=== PATIENT | female | born 1955 | race Caucasian/White ===

== ENCOUNTER 2019-09-26 21:33 | Inpatient (IN) | payer MEDICARE, OTHER ==
[~2019-09-26] VITALS: Ht 160 cm; Wt 86.7 kg
--- NOTE | 2019-09-26 22:19 | PHYS DOC ---
Past Medical History Past Medical History: No Pertinent History Additional Past Surgical Histo: LT PLATEAU FX-SCREWS/PLATES Smoking Status: Current Every Day Smoker Alcohol Use: Occasionally Additional Information: PT DRINKS 2 GLASSES OF WINE DAILY. Adult General Chief Complaint Chief Complaint: KNEE INJURY [facility] HPI Patient is a 63 year old female presents with the chief complaint of left knee pain. Prior to arrival patient was stretching her left knee up on a chair. When taking left knee of the chair patient feel to the ground injuring her left knee. On exam left knee is swollen. Patient has decreased ROM of left knee. Patient state pain from left knee radiates up to left thigh. Review of Systems Review of Systems Constitutional: Denies fever or chills [] Eyes: Denies change in visual acuity, redness, or eye pain [] HENT: Denies nasal congestion or sore throat [] Respiratory: Denies cough or shortness of breath [] Cardiovascular: No additional information not addressed in HPI [] GI: Denies abdominal pain, nausea, vomiting, bloody stools or diarrhea [] : Denies dysuria or hematuria [] Musculoskeletal: positive left knee pain Integument: Denies rash or skin lesions [] Neurologic: Denies headache, focal weakness or sensory changes [] Endocrine: Denies polyuria or polydipsia [] All other systems were reviewed and found to be within normal limits, except as documented in this note. Current Medications Current Medications Current Medications Medications (Trade) Dose Ordered Sig/Marlin Start Time Stop Time Status Last Admin Dose Admin Morphine Sulfate (Morphine Sulfate) 4 mg PRN Q2HR PRN 09/26/19 22:30 09/27/19 22:29 Ondansetron HCl (Zofran) 4 mg PRN Q8HRS PRN 09/26/19 22:30 09/27/19 22:29 Allergies Allergies Allergies Coded Allergies Type Severity Reaction Last Updated Verified No Known Drug Allergies 09/26/19 No Physical Exam Physical Exam Constitutional: Well developed, well nourished, no acute distress, non-toxic appearance. [] HENT: Normocephalic, atraumatic, bilateral external ears normal, oropharynx moist, no oral exudates, nose normal. [] Eyes: PERRLA, EOMI, conjunctiva normal, no discharge. [] Neck: Normal range of motion, no tenderness, supple, no stridor. [] Cardiovascular:Heart rate regular rhythm, no murmur [] Lungs & Thorax: Bilateral breath sounds clear to auscultation [] Abdomen: Bowel sounds normal, soft, no tenderness, no masses, no pulsatile masses. [] Skin: Warm, dry, no erythema, no rash. [] Back: No tenderness, no CVA tenderness. [] Extremities: decreased ROM Left knee pain, Left knee swelling, left pedal pulses intact, Left lower extremity NVI Neurologic: Alert and oriented X 3, normal motor function, normal sensory function, no focal deficits noted. [] Psychologic: Affect normal, judgement normal, mood normal. [] Current Patient Data Vital Signs Vital Signs Date Time Temp Pulse Resp B/P (MAP) Pulse Ox O2 Delivery O2 Flow Rate FiO2 09/26/19 22:32 93 09/26/19 21:33 98.0 92 18 176/81 (112) Room Air 98.0 Lab Values Laboratory Tests Test 09/26/19 21:45 White Blood Count 11.9 x10^3/uL (4.0-11.0) H Red Blood Count 4.38 x10^6/uL (3.50-5.40) Hemoglobin 13.1 g/dL (12.0-15.5) Hematocrit 39.5 % (36.0-47.0) Mean Corpuscular Volume 90 fL (79-100) Mean Corpuscular Hemoglobin 30 pg (25-35) Mean Corpuscular Hemoglobin Concent 33 g/dL (31-37) Red Cell Distribution Width 15.5 % (11.5-14.5) H Platelet Count 276 x10^3/uL (140-400) Neutrophils (%) (Auto) 57 % (31-73) Lymphocytes (%) (Auto) 30 % (24-48) Monocytes (%) (Auto) 7 % (0-9) Eosinophils (%) (Auto) 7 % (0-3) H Basophils (%) (Auto) 1 % (0-3) Neutrophils # (Auto) 6.7 x10^3/uL (1.8-7.7) Lymphocytes # (Auto) 3.5 x10^3/uL (1.0-4.8) Monocytes # (Auto) 0.8 x10^3/uL (0.0-1.1) Eosinophils # (Auto) 0.8 x10^3/uL (0.0-0.7) H Basophils # (Auto) 0.1 x10^3/uL (0.0-0.2) Sodium Level 139 mmol/L (136-145) Potassium Level 3.7 mmol/L (3.5-5.1) Chloride Level 103 mmol/L (98-107) Carbon Dioxide Level 23 mmol/L (21-32) Anion Gap 13 (6-14) Blood Urea Nitrogen 17 mg/dL (7-20) Creatinine 0.7 mg/dL (0.6-1.0) Estimated GFR (Cockcroft-Gault) 84.0 BUN/Creatinine Ratio 24 (6-20) H Glucose Level 122 mg/dL (70-99) H Calcium Level 8.7 mg/dL (8.5-10.1) Total Bilirubin 0.2 mg/dL (0.2-1.0) Aspartate Amino Transferase (AST) 18 U/L (15-37) Alanine Aminotransferase (ALT) 21 U/L (14-59) Alkaline Phosphatase 89 U/L (46-116) Troponin I Quantitative < 0.017 ng/mL (0.000-0.055) Total Protein 6.9 g/dL (6.4-8.2) Albumin 3.8 g/dL (3.4-5.0) Albumin/Globulin Ratio 1.2 (1.0-1.7) Laboratory Tests 09/26/19 21:45 Laboratory Tests 09/26/19 21:45 EKG EKG [] Radiology/Procedures Radiology/Procedures [] Course & Med Decision Making Course & Med Decision Making Pertinent Labs and Imaging studies reviewed. (See chart for details) []Xray Knee- Distal fracture. Patient's pain was treated with morphine. Posttreatment patient's pain improved. Patient did have associated nausea which was treated with Zofran. Patient was admitted to the hospitalist with consult placed to orthopedics. Discussed patient with Dr. Jones-- patient will be NPO after midnight. Dragon Disclaimer Dragon Disclaimer This electronic medical record was generated, in whole or in part, using a voice recognition dictation system. Departure Departure Impression: Primary Impression: Knee pain Additional Impression: Fracture, femur, distal Admitting Physician: PONCHO Condition: STABLE Problem Qualifiers KYLE GILBERT I DO Sep 26, 2019:19
[2019-09-26] MEDS ORDERED: ONDANSETRON PF 4 MG/2 ML VIAL. IVP ONE (22:30)
[2019-09-26] MEDS ORDERED: ONDANSETRON PF 4 MG/2 ML VIAL. IV PRN (22:30)
[2019-09-26] MEDS ORDERED: MORPHINE SULFATE 4 MG/ML VIAL. IV PRN (22:30)
[2019-09-26] MEDS ORDERED: MORPHINE SULFATE 4 MG/ML VIAL. IV ONE (22:30)
[2019-09-26 22:32] LABS: BASO # 0.1 x10^3/uL (0.0-0.2); BASO % 1 % (0-3); EOS # 0.8 x10^3/uL (0.0-0.7); EOS % 7 % (0-3); HEMATOCRIT 39.5 % (36.0-47.0); HEMOGLOBIN 13.1 g/dL (12.0-15.5); LYMPH # 3.5 x10^3/uL (1.0-4.8); LYMPH % 30 % (24-48); MEAN CORPUSCULAR HEMOGLOBIN 30 pg (25-35); MEAN CORPUSCULAR HGB CONC 33 g/dL (31-37); MEAN CORPUSCULAR VOLUME 90 fL (79-100); MONO # 0.8 x10^3/uL (0.0-1.1); MONO % 7 % (0-9); NEUT # 6.7 x10^3/uL (1.8-7.7); NEUT % 57 % (31-73); PLATELET COUNT 276 x10^3/uL (140-400); RED BLOOD COUNT 4.38 x10^6/uL (3.50-5.40); RED CELL DISTRIBUTION WIDTH 15.5 % (11.5-14.5); WHITE BLOOD COUNT 11.9 x10^3/uL (4.0-11.0)
[2019-09-26 22:41] LABS: CALCIUM 8.7 mg/dL (8.5-10.1); CREATININE 0.7 mg/dL (0.6-1.0); POTASSIUM 3.7 mmol/L (3.5-5.1)
[2019-09-26 22:47] LABS: ALBUMIN 3.8 g/dL (3.4-5.0); ALBUMIN/GLOBULIN RATIO 1.2 (1.0-1.7); TOTAL BILIRUBIN 0.2 mg/dL (0.2-1.0); TOTAL PROTEIN 6.9 g/dL (6.4-8.2)
--- NOTE | 2019-09-26 23:09 | RAD ---
AP chest. HISTORY: Preop chest, femur fracture AP view was taken of the chest. Lungs are free of infiltrates. Heart is normal in size. There is no pleural effusion. The aorta is tortuous. IMPRESSION: 1. No acute infiltrates. Electronically signed by: Ha Gonzales MD (09/26/2019 11:06 PM) [id number]
--- NOTE | 2019-09-26 23:12 | RAD ---
Right knee AP and lateral views. HISTORY: Pain after injury 2 views were taken of the right knee. There is a comminuted angulated displaced fracture of the distal third of the right femur. There is possible intercondylar extension of the fracture line. There is arthritis at the knee with joint space narrowing and hypertrophic spurring. There is chondrocalcinosis. IMPRESSION: 1. Comminuted displaced angulated fracture distal right femur. Electronically signed by: Ha Gonzales MD (09/26/2019 11:09 PM) [id number]
[2019-09-27] VITALS (14 sets, daily range): BP systolic 111–156; BP diastolic 67–83
--- NOTE | 2019-09-27 05:20 | EKG ---
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
--- NOTE | 2019-09-27 08:30 | NUR ---
SW following. Discussed with RN, pt from home with , having surgery today. SW will continue to follow.
--- NOTE | 2019-09-27 10:11 | PDOC1 ---
History and Physical Date of Admission Date of Admission DATE: 09/27/19 TIME: 09:59 History of Present Illness History of Present Illness Leighann is a 63 year old female presents with the chief complaint of left knee pain. Prior to arrival patient was stretching her left knee up on a chair. When taking left knee of the chair patient feel to the ground injuring her left knee. Past Medical History Cardiovascular: No pertinent hx Pulmonary: No pertinent hx Heme/Onc: No pertinent hx Hepatobiliary: No pertinent hx Psych: No pertinent hx Past Surgical History Past Surgical History: Total knee replacement (tibia fracture) Family History Family History: No Significant Social History Smoke: <1 pack per day ALCOHOL: none Drugs: None Current Problem List Problem List Problems Medical Problems: (1) Fracture, femur, distal Status: Acute (2) Knee pain Status: Acute Current Medications Current Medications Current Medications Morphine Sulfate (Morphine Sulfate) 4 mg 1X ONCE IV Last administered on 09/26/19at 22:32; Start 09/26/19 at 22:30; Stop 09/26/19 at 22:31; Status DC Ondansetron HCl (Zofran) 4 mg 1X ONCE IVP Last administered on 09/26/19at 22:31; Start 09/26/19 at 22:30; Stop 09/26/19 at 22:31; Status DC Ondansetron HCl (Zofran) 4 mg PRN Q8HRS PRN IV NAUSEA/VOMITING; Start 09/26/19 at 22:30; Stop 09/27/19 at 22:29 Morphine Sulfate (Morphine Sulfate) 4 mg PRN Q2HR PRN IV PAIN Last administered on 09/27/19at 02:57; Start 09/26/19 at 22:30; Stop 09/27/19 at 22:29 Allergies Allergies: Coded Allergies: No Known Drug Allergies (Unverified , 09/26/19) ROS General: No: Chills, Night Sweats, Fatigue, Malaise, Appetite, Other PSYCHOLOGICAL ROS: No: Anxiety, Behavioral Disorder, Concentration difficultie, Decreased libido, Depression, Disorientation, Hallucinations, Hostility, Irritablity, Memory difficulties, Mood Swings, Obsessive thoughts, Physical abuse, Sexual abuse, Sleep disturbances, Suicidal ideation, Other Eyes: No Blurry vision, No Decreased vision, No Double vision, No Dry eyes, No Excessive tearing, No Eye Pain, No Itchy Eyes, No Loss of vision, No Photophobia, No Scotomata, No Uses contacts, No Uses glasses, No Other HEENT: No: Heacaches, Visual Changes, Hearing change, Nasal congestion, Nasal discharge, Oral lesions, Sinus pain, Sore Throat, Epistaxis, Sneezing, Snoring, Tinnitus, Vertigo, Vocal changes, Other Respiratory: No: Cough, Hemoptysis, Orthopnea, Pleuritic Pain, Shortness of breath, SOB with excertion, Sputum Changes, Stridor, Tachypnea, Wheezing, Other Cardiovascular: No Chest Pain, No Palpitations, No Orthopnea, No Paroxysmal Noc. Dyspnea, No Edema, No Lt Headedness, No Other Gastrointestinal: No Nausea, No Vomiting, No Abdominal Pain, No Diarrhea, No Constipation, No Melena, No Hematochezia, No Other Genitourinary: No Dysuria, No Frequency, No Incontinence, No Hematuria, No Retention, No Discharge, No Urgency, No Pain, No Flank Pain, No Other, No , No , No , No , No , No , No Musculoskeletal: Yes Gait Disturbance, Yes Joint Pain, Yes Joint Stiffness Neurological: Yes Gait Disturbance; No Behavorial Changes, No Bowel/Bladder ControlChng, No Confusion, No Dizziness, No Headaches, No Impaired Coord/balance, No Memory Loss, No Numbness/Tingling, No Seizures, No Speech Problems, No Tremors, No Visual Changes, No Weakness, No Other Skin: No Dry Skin, No Eczema, No Hair Changes, No Lumps, No Mole Changes, No Mottling, No Nail Changes, No Pruritus, No Rash, No Skin Lesion Changes, No Other, No Acne Physical Exam General: Alert, Cooperative, No acute distress HEENT: Atraumatic, PERRLA, EOMI, Mucous membr. moist/pink Lungs: Clear to auscultation, Normal air movement Heart: S1S2, no murmurs Extremities: No clubbing, No edema, Normal pulses Skin: No rashes, No significant lesion Neuro: Normal gait, Normal speech, Sensation intact, Cranial nerves 3-12 NL Psych/Mental Status: Mood NL Vitals Vitals Vital Signs Date Time Temp Pulse Resp B/P (MAP) Pulse Ox O2 Delivery O2 Flow Rate FiO2 09/27/19 07:37 Nasal Cannula 2.0 09/27/19 07:00 98.4 89 17 129/75 (93) 94 98.4 Labs Labs Laboratory Tests Test 09/26/19 21:45 White Blood Count 11.9 x10^3/uL (4.0-11.0) Red Blood Count 4.38 x10^6/uL (3.50-5.40) Hemoglobin 13.1 g/dL (12.0-15.5) Hematocrit 39.5 % (36.0-47.0) Mean Corpuscular Volume 90 fL (79-100) Mean Corpuscular Hemoglobin 30 pg (25-35) Mean Corpuscular Hemoglobin Concent 33 g/dL (31-37) Red Cell Distribution Width 15.5 % (11.5-14.5) Platelet Count 276 x10^3/uL (140-400) Neutrophils (%) (Auto) 57 % (31-73) Lymphocytes (%) (Auto) 30 % (24-48) Monocytes (%) (Auto) 7 % (0-9) Eosinophils (%) (Auto) 7 % (0-3) Basophils (%) (Auto) 1 % (0-3) Neutrophils # (Auto) 6.7 x10^3/uL (1.8-7.7) Lymphocytes # (Auto) 3.5 x10^3/uL (1.0-4.8) Monocytes # (Auto) 0.8 x10^3/uL (0.0-1.1) Eosinophils # (Auto) 0.8 x10^3/uL (0.0-0.7) Basophils # (Auto) 0.1 x10^3/uL (0.0-0.2) Sodium Level 139 mmol/L (136-145) Potassium Level 3.7 mmol/L (3.5-5.1) Chloride Level 103 mmol/L (98-107) Carbon Dioxide Level 23 mmol/L (21-32) Anion Gap 13 (6-14) Blood Urea Nitrogen 17 mg/dL (7-20) Creatinine 0.7 mg/dL (0.6-1.0) Estimated GFR (Cockcroft-Gault) 84.0 BUN/Creatinine Ratio 24 (6-20) Glucose Level 122 mg/dL (70-99) Calcium Level 8.7 mg/dL (8.5-10.1) Total Bilirubin 0.2 mg/dL (0.2-1.0) Aspartate Amino Transf (AST/SGOT) 18 U/L (15-37) Alanine Aminotransferase (ALT/SGPT) 21 U/L (14-59) Alkaline Phosphatase 89 U/L (46-116) Troponin I Quantitative < 0.017 ng/mL (0.000-0.055) Total Protein 6.9 g/dL (6.4-8.2) Albumin 3.8 g/dL (3.4-5.0) Albumin/Globulin Ratio 1.2 (1.0-1.7) Laboratory Tests Test 09/26/19 21:45 White Blood Count 11.9 x10^3/uL (4.0-11.0) Red Blood Count 4.38 x10^6/uL (3.50-5.40) Hemoglobin 13.1 g/dL (12.0-15.5) Hematocrit 39.5 % (36.0-47.0) Mean Corpuscular Volume 90 fL (79-100) Mean Corpuscular Hemoglobin 30 pg (25-35) Mean Corpuscular Hemoglobin Concent 33 g/dL (31-37) Red Cell Distribution Width 15.5 % (11.5-14.5) Platelet Count 276 x10^3/uL (140-400) Neutrophils (%) (Auto) 57 % (31-73) Lymphocytes (%) (Auto) 30 % (24-48) Monocytes (%) (Auto) 7 % (0-9) Eosinophils (%) (Auto) 7 % (0-3) Basophils (%) (Auto) 1 % (0-3) Neutrophils # (Auto) 6.7 x10^3/uL (1.8-7.7) Lymphocytes # (Auto) 3.5 x10^3/uL (1.0-4.8) Monocytes # (Auto) 0.8 x10^3/uL (0.0-1.1) Eosinophils # (Auto) 0.8 x10^3/uL (0.0-0.7) Basophils # (Auto) 0.1 x10^3/uL (0.0-0.2) Sodium Level 139 mmol/L (136-145) Potassium Level 3.7 mmol/L (3.5-5.1) Chloride Level 103 mmol/L (98-107) Carbon Dioxide Level 23 mmol/L (21-32) Anion Gap 13 (6-14) Blood Urea Nitrogen 17 mg/dL (7-20) Creatinine 0.7 mg/dL (0.6-1.0) Estimated GFR (Cockcroft-Gault) 84.0 BUN/Creatinine Ratio 24 (6-20) Glucose Level 122 mg/dL (70-99) Calcium Level 8.7 mg/dL (8.5-10.1) Total Bilirubin 0.2 mg/dL (0.2-1.0) Aspartate Amino Transf (AST/SGOT) 18 U/L (15-37) Alanine Aminotransferase (ALT/SGPT) 21 U/L (14-59) Alkaline Phosphatase 89 U/L (46-116) Troponin I Quantitative < 0.017 ng/mL (0.000-0.055) Total Protein 6.9 g/dL (6.4-8.2) Albumin 3.8 g/dL (3.4-5.0) Albumin/Globulin Ratio 1.2 (1.0-1.7) VTE Prophylaxis Ordered VTE Prophylaxis Devices: No VTE Pharmacological Prophylaxi: Yes Assessment/Plan Assessment/Plan fall while exercising, fell off a chair tobacco use disorder, 10/day BMI 32 CINDY BRICENO MD Sep 27, 2019 10:11
[2019-09-27] MEDS ORDERED: NICOTINE POLACRILEX 2MG GUM PACKAGE of 12. BC PRN (10:15)
[2019-09-27] MEDS ORDERED: DEXAMETHASONE SOD PHOS 4 MG/ML VIAL ONE (14:10)
[2019-09-27] MEDS ORDERED: ONDANSETRON PF 4 MG/2 ML VIAL. ONE (14:10)
[2019-09-27] MEDS ORDERED: PROPOFOL 20 ML IV ONE (14:10)
[2019-09-27] MEDS ORDERED: LIDOCAINE 2% PF 5 ML VIAL. ONE (14:10)
[2019-09-27] MEDS ORDERED: IV RINGERS,LACTATED 1000ML 1,000 ML IV SCH ×2 (16:32→16:45)
[2019-09-27] MEDS ORDERED: MORPHINE SULFATE 2 MG/ML VIAL. IV PRN (16:45)
[2019-09-27] MEDS ORDERED: ONDANSETRON PF 4 MG/2 ML VIAL. IV PRN (16:45)
[2019-09-27] MEDS ORDERED: PROCHLORPERAZINE 10 MG/2 ML VIAL. IV PRN (16:45)
[2019-09-27] MEDS ORDERED: fentaNYL PF VIAL 100 MCG/2 ML VIAL IV PRN (16:45)
[2019-09-27] MEDS ORDERED: HYDROmorphone 2 MG/ML VIAL IV PRN (16:45)
[2019-09-27] MEDS ORDERED: fentaNYL PF VIAL 100 MCG/2 ML VIAL ONE (17:07)
[2019-09-27] MEDS ORDERED: SEVOFLURANE 61 TO 120 MINUTES. IH ONE (17:50)
[2019-09-27] MEDS ORDERED: ePHEDrine PF IN SALINE 50 MG/10 ML SYRINGE. IV ONE (17:51)
[2019-09-27] MEDS: fentaNYL PF VIAL 100 MCG/2 ML VIAL IV PRN ×2 (18:58→19:10)
--- NOTE | 2019-09-27 19:05 | PDOC4 ---
Operative Note Operative Note Date of surgery: 09/27/2019 Preoperative diagnosis: Displaced right distal femur fracture Postoperative diagnosis: Same with comminution but no intra-articular extension Operative procedure: Operative reduction internal fixation right distal femur fracture with retrograde intramedullary nail Surgeon: Karen Assist: Otis aguilar Anesthesia: Gen. Estimated blood loss: 100 mL Complications: None Operative indications: Please see my dictated orthopedic consultation of today for detail operative indications Operative text: Patient was identified procedure verified patient placed in the supine position on the operating table. After adequate amounts of general anesthesia were administered the right lower extremity was prepped and draped in standard sterile fashion. After timeout was performed patient procedure identified and verified, the femur fracture was provisionally reduced with traction under fluoroscopic guidance and appeared to be amenable to placement of an intramedullary nail. An incision was made along the medial aspect of the patellar tendon and with the knee in slight flexion patella was displaced laterally placing a guidewire at the intercondylar notch on the AP view and Blumensaat's line laterally. Treated drill bit was advanced and a long guidewire was placed intramedullary reaming carried out up to a 12 1/2 with an 11-1/2 by 32 cm retrograde femoral nail which was first fixated with a lateral to medially placed screw and oblique screws with good fixation of the comminuted bone and screw placement checked under multiple fluoroscopic guidance. A single anterior posterior screw was placed in the static hole proximally and verified to be in good position with adequate reduction and hardware placement again verified throughout thorough irrigation carried out normal saline solution fascia was closed with #1 Vicryl suture subcutaneous closure with buried Vicryl suture skin closure with nedra sterile soft dressings were applied patient was returned recovery room in stable condition having tolerated procedure well. Otis aguilar assisted in the prepping draping reduction retraction and closure ERNIE LANGE MD Sep 27, 2019 19:05
--- NOTE | 2019-09-27 19:45 | CONS ---
DATE OF CONSULTATION: 09/27/2019 ORTHOPEDIC CONSULTATION REQUESTING PHYSICIAN: Dr. Espino. REASON FOR CONSULTATION: Right knee injury. HISTORY OF PRESENT ILLNESS: The patient is a 63-year-old female who was stretching her left knee up on a chair and lost her balance while taking the left knee off the chair and fell to the ground, injuring her right knee. She has a previous injury to her left knee and some stiffness as a result of a tibial plateau fracture. The right knee was previously uninjured and states that she has severe pain, inability to bear weight with the right knee and deformity. She was admitted through the [facility] last night and pain radiating up to her left thigh area. PAST MEDICAL HISTORY: She denies any significant past medical history. PAST SURGICAL HISTORY: Significant for fixation of a tibial plateau fracture on the left with plate and screw fixation. SOCIAL HISTORY: She does smoke. Denies drug use and drinks a couple glasses of wine daily. FAMILY HISTORY: Denies any significant family history. ALLERGIES: No known drug allergies. MEDICATIONS: List is reviewed. REVIEW OF SYSTEMS: Denies any loss of consciousness, head injury, neck or back pain. No upper extremity discomfort at all. She has obvious deformity and pain with any range of motion of the right side just above the knee. No focal weakness, numbness, or tingling. No chest pain, shortness of breath, recent febrile illness, respiratory or urinary tract symptoms. PHYSICAL EXAMINATION: GENERAL: Pleasant, cooperative 63-year-old female, resting comfortably in bed. EXTREMITIES: On examination of the upper extremities, she has full shoulder, elbow and wrist motion bilaterally. No tenderness on palpation, instability. No neck or back pain, no tenderness on palpation. She has obvious deformity and swelling of the right distal femur area. No calf tenderness. She does have a well-healed incision over the contralateral tibia from previous fixation surgery of a tibial plateau fracture. Normal alignment, stability of bilateral hips and ankles with intact motor function, distal pulses, sensation in both lower extremities throughout. IMAGING: X-rays reveal a displaced distal femoral shaft fracture with extension into the metaphysis and she has some degenerative change noted in the right knee tri-compartmentally. IMPRESSION: Displaced distal femur fracture. TREATMENT PLAN: I went over with her the significance of the injury, the poor alignment and the need basically for surgical stabilization, possibility of an intramedullary leticia fixation versus a plate and screw fixation and the necessary protection of limited weightbearing. Regardless, she is certainly familiar with this from previous recovery from a tibial plateau injury. She is aware of the possibility of infection, nonhealing, nerve or blood vessel damage, possibility of hardware removal being necessary if she goes on to need a knee replacement and possibility of medical or other anesthetic complications. All her questions were answered and surgery will be done today pending OR availability. ERNIE LANGE MD DR: LINDA/karlene JOB#: [id number] / [id number]
--- NOTE | 2019-09-27 20:03 | NUR ---
Received report from HUSSEIN Sherwood. Pt. arrived on floor at 1924 from PACU in bed.
--- NOTE | 2019-09-27 22:08 | PDOC ---
ORTHO PROGRESS NOTES Subjective Pt resting comfortably reports no pain, complications day after RIGHT femur ORIF. Post-op Day: 1 Procedure Operative reduction internal fixation right distal femur fracture with retrograde intramedullary nail Vitals Vital Signs Date Time Temp Pulse Resp B/P (MAP) Pulse Ox O2 Delivery O2 Flow Rate FiO2 09/27/19 19:18 Nasal Cannula 4 09/27/19 19:18 98.5 75 16 132/73 96 98.5 Labs Laboratory Tests Test 09/26/19 21:45 White Blood Count 11.9 x10^3/uL (4.0-11.0) Red Blood Count 4.38 x10^6/uL (3.50-5.40) Hemoglobin 13.1 g/dL (12.0-15.5) Hematocrit 39.5 % (36.0-47.0) Mean Corpuscular Volume 90 fL (79-100) Mean Corpuscular Hemoglobin 30 pg (25-35) Mean Corpuscular Hemoglobin Concent 33 g/dL (31-37) Red Cell Distribution Width 15.5 % (11.5-14.5) Platelet Count 276 x10^3/uL (140-400) Neutrophils (%) (Auto) 57 % (31-73) Lymphocytes (%) (Auto) 30 % (24-48) Monocytes (%) (Auto) 7 % (0-9) Eosinophils (%) (Auto) 7 % (0-3) Basophils (%) (Auto) 1 % (0-3) Neutrophils # (Auto) 6.7 x10^3/uL (1.8-7.7) Lymphocytes # (Auto) 3.5 x10^3/uL (1.0-4.8) Monocytes # (Auto) 0.8 x10^3/uL (0.0-1.1) Eosinophils # (Auto) 0.8 x10^3/uL (0.0-0.7) Basophils # (Auto) 0.1 x10^3/uL (0.0-0.2) Sodium Level 139 mmol/L (136-145) Potassium Level 3.7 mmol/L (3.5-5.1) Chloride Level 103 mmol/L (98-107) Carbon Dioxide Level 23 mmol/L (21-32) Anion Gap 13 (6-14) Blood Urea Nitrogen 17 mg/dL (7-20) Creatinine 0.7 mg/dL (0.6-1.0) Estimated GFR (Cockcroft-Gault) 84.0 BUN/Creatinine Ratio 24 (6-20) Glucose Level 122 mg/dL (70-99) Calcium Level 8.7 mg/dL (8.5-10.1) Total Bilirubin 0.2 mg/dL (0.2-1.0) Aspartate Amino Transf (AST/SGOT) 18 U/L (15-37) Alanine Aminotransferase (ALT/SGPT) 21 U/L (14-59) Alkaline Phosphatase 89 U/L (46-116) Troponin I Quantitative < 0.017 ng/mL (0.000-0.055) Total Protein 6.9 g/dL (6.4-8.2) Albumin 3.8 g/dL (3.4-5.0) Albumin/Globulin Ratio 1.2 (1.0-1.7) X-Rays ORIF RIGHT distal femur on fluoroscopy images. Not yet interpreted. Appearance of normal alignment without hardware complications. Notes Patient resting comfortably, no distress eating breakfast. Right lower extremity toes pink and warm, DP pulse bilaterally 2+. Neurovascularly intact bilateral lower extremities. Right knee immobilizer undone and bandage is examined and clean, dry no excess drainage. Thigh and calf on surgical side no palpable hematoma or mass, cords. Neg corina's sign. A&Ox3. WBC elevated at 11k+. Problems: (1) History of orthopedic surgery (2) Fracture, femur, distal Assessment and Plan Monitor NV status. No medication changes. Lab check in AM. ICS. Problem Qualifiers (1) Fracture, femur, distal: Encounter type: subsequent encounter Fracture type: closed Fracture morphology: other fracture Laterality: right Fracture healing: with routine healing Qualified Codes: S72.491D - Other fracture of lower end of right femur, subsequent encounter for closed fracture with routine healing AMADA BLOOD Jr. [facility] Sep 27, 2019 22:08
[2019-09-27] MEDS: oxyCODONE/APAP 5/325 1 TAB TABLET PO PRN (22:26)
[2019-09-28 03:00] VITALS: BP 130/62
[2019-09-28] MEDS: oxyCODONE/APAP 5/325 1 TAB TABLET PO PRN ×3 (04:24→20:03)
[2019-09-28 07:00] VITALS: BP 133/71
[2019-09-28 11:00] VITALS: BP 125/64
--- NOTE | 2019-09-28 12:09 | PDOC ---
PROGRESS NOTES Chief Complaint Chief Complaint fall while exercising, fell off a chair tobacco use disorder, 10/day BMI 32 History of Present Illness History of Present Illness pain better advance diet Vitals Vitals Vital Signs Date Time Temp Pulse Resp B/P (MAP) Pulse Ox O2 Delivery O2 Flow Rate FiO2 09/28/19 11:10 95 Room Air 09/28/19 11:00 98.5 82 16 125/64 (84) 98.5 09/28/19 07:47 2.0 Physical Exam General: Alert, Cooperative, No acute distress Heart: Regular rate Abdomen: Normal bowel sounds Extremities: No clubbing, No edema, Normal pulses Skin: No rashes, No significant lesion Assessment and Plan Assessmemt and Plan Problems Medical Problems: (1) Fracture, femur, distal Status: Acute (2) Knee pain Status: Acute Comment Review of Relevant I have reviewed the following items sheri (where applicable) has been applied. Labs Laboratory Tests Test 09/26/19 21:45 White Blood Count 11.9 x10^3/uL (4.0-11.0) Red Blood Count 4.38 x10^6/uL (3.50-5.40) Hemoglobin 13.1 g/dL (12.0-15.5) Hematocrit 39.5 % (36.0-47.0) Mean Corpuscular Volume 90 fL (79-100) Mean Corpuscular Hemoglobin 30 pg (25-35) Mean Corpuscular Hemoglobin Concent 33 g/dL (31-37) Red Cell Distribution Width 15.5 % (11.5-14.5) Platelet Count 276 x10^3/uL (140-400) Neutrophils (%) (Auto) 57 % (31-73) Lymphocytes (%) (Auto) 30 % (24-48) Monocytes (%) (Auto) 7 % (0-9) Eosinophils (%) (Auto) 7 % (0-3) Basophils (%) (Auto) 1 % (0-3) Neutrophils # (Auto) 6.7 x10^3/uL (1.8-7.7) Lymphocytes # (Auto) 3.5 x10^3/uL (1.0-4.8) Monocytes # (Auto) 0.8 x10^3/uL (0.0-1.1) Eosinophils # (Auto) 0.8 x10^3/uL (0.0-0.7) Basophils # (Auto) 0.1 x10^3/uL (0.0-0.2) Sodium Level 139 mmol/L (136-145) Potassium Level 3.7 mmol/L (3.5-5.1) Chloride Level 103 mmol/L (98-107) Carbon Dioxide Level 23 mmol/L (21-32) Anion Gap 13 (6-14) Blood Urea Nitrogen 17 mg/dL (7-20) Creatinine 0.7 mg/dL (0.6-1.0) Estimated GFR (Cockcroft-Gault) 84.0 BUN/Creatinine Ratio 24 (6-20) Glucose Level 122 mg/dL (70-99) Calcium Level 8.7 mg/dL (8.5-10.1) Total Bilirubin 0.2 mg/dL (0.2-1.0) Aspartate Amino Transf (AST/SGOT) 18 U/L (15-37) Alanine Aminotransferase (ALT/SGPT) 21 U/L (14-59) Alkaline Phosphatase 89 U/L (46-116) Troponin I Quantitative < 0.017 ng/mL (0.000-0.055) Total Protein 6.9 g/dL (6.4-8.2) Albumin 3.8 g/dL (3.4-5.0) Albumin/Globulin Ratio 1.2 (1.0-1.7) Medications Current Medications Morphine Sulfate (Morphine Sulfate) 4 mg 1X ONCE IV Last administered on 09/26/19at 22:32; Start 09/26/19 at 22:30; Stop 09/26/19 at 22:31; Status DC Ondansetron HCl (Zofran) 4 mg 1X ONCE IVP Last administered on 09/26/19at 22:31; Start 09/26/19 at 22:30; Stop 09/26/19 at 22:31; Status DC Ondansetron HCl (Zofran) 4 mg PRN Q8HRS PRN IV NAUSEA/VOMITING; Start 09/26/19 at 22:30; Stop 09/27/19 at 22:29; Status DC Morphine Sulfate (Morphine Sulfate) 4 mg PRN Q2HR PRN IV PAIN Last administered on 09/27/19at 02:57; Start 09/26/19 at 22:30; Stop 09/27/19 at 22:29; Status DC Nicotine Polacrilex (Nicorette Gum) 1 each PRN Q1HR PRN BC SMOKING CESSATION; Start 09/27/19 at 10:15 Propofol 20 ml @ As Directed STK-MED ONCE IV ; Start 09/27/19 at 14:10; Stop 09/27/19 at 14:11; Status DC Dexamethasone Sodium Phosphate (Decadron) 4 mg STK-MED ONCE .ROUTE ; Start 09/27/19 at 14:10; Stop 09/27/19 at 14:11; Status DC Lidocaine HCl (Lidocaine Pf 2% Vial) 5 ml STK-MED ONCE .ROUTE ; Start 09/27/19 at 14:10; Stop 09/27/19 at 14:11; Status DC Ondansetron HCl (Zofran) 4 mg STK-MED ONCE .ROUTE ; Start 09/27/19 at 14:10; Stop 09/27/19 at 14:11; Status DC Ondansetron HCl (Zofran) 4 mg PRN Q6HRS PRN IV NAUSEA/VOMITING; Start 09/27/19 at 16:45; Stop 09/27/19 at 22:00; Status DC Fentanyl Citrate (Fentanyl 2ml Vial) 25 mcg PRN Q5MIN PRN IV MILD PAIN 1-3; Start 09/27/19 at 16:45; Stop 09/27/19 at 20:21; Status DC Fentanyl Citrate (Fentanyl 2ml Vial) 50 mcg PRN Q5MIN PRN IV MODERATE TO SEVERE PAIN Last administered on 09/27/19at 19:10; Start 09/27/19 at 16:45; Stop 09/27/19 at 20:21; Status DC Morphine Sulfate (Morphine Sulfate) 1 mg PRN Q10MIN PRN IV SEVERE PAIN 7-10; Start 09/27/19 at 16:45; Stop 09/27/19 at 20:21; Status DC Ringer's Solution 1,000 ml @ 30 mls/hr Q24H IV ; Start 09/27/19 at 16:32; Stop 09/27/19 at 20:21; Status DC Hydromorphone HCl (Dilaudid) 0.5 mg PRN Q10MIN PRN IV SEV PAIN, Second choice; Start 09/27/19 at 16:45; Stop 09/27/19 at 20:21; Status DC Prochlorperazine Edisylate (Compazine) 5 mg PACU PRN PRN IV NAUSEA, MRX1; Start 09/27/19 at 16:45; Stop 09/27/19 at 22:00; Status DC Ringer's Solution 1,000 ml @ 75 mls/hr [id number] IV Last administered on 09/27/19at 16:46; Start 09/27/19 at 16:45; Stop 09/27/19 at 20:21; Status DC Cefazolin Sodium/ Dextrose 50 ml @ 100 mls/hr 1X ONCE IV Last administered on 09/27/19at 17:03; Start 09/27/19 at 17:00; Stop 09/27/19 at 17:29; Status DC Fentanyl Citrate (Fentanyl 2ml Vial) 100 mcg STK-MED ONCE .ROUTE ; Start 09/27/19 at 17:07; Stop 09/27/19 at 17:08; Status DC Sevoflurane (Ultane) 60 ml STK-MED ONCE IH ; Start 09/27/19 at 17:50; Stop 09/27/19 at 17:51; Status DC Ephedrine Sulfate (ePHEDrine PF IN SALINE SYRINGE) 50 mg STK-MED ONCE IV ; Start 09/27/19 at 17:51; Stop 09/27/19 at 17:51; Status DC Oxycodone/ Acetaminophen (Percocet 5/325) 1 tab PRN Q4HRS PRN PO SEVERE PAIN 7- 10 Last administered on 09/28/19at 11:10; Start 09/27/19 at 22:15 Vitals/I & O Vital Sign - Last 24 Hours 09/27/19 09/27/19 09/27/19 09/27/19 15:00 15:55 16:46 18:44 Temp 98.6 99.2 98.6 99.2 Pulse 57 80 81 Resp 18 20 20 B/P (MAP) 152/71 (98) 185/86 200/85 Pulse Ox 92 96 95 O2 Delivery Nasal Cannula Nasal Cannula Nasal Cannula Mask O2 Flow Rate 2.0 2 2 10 09/27/19 09/27/19 09/27/19 09/27/19 18:44 18:58 19:03 19:10 Temp 99.3 99.3 99.3 99.3 Pulse 77 76 Resp 22 16 14 16 B/P (MAP) 146/73 135/80 Pulse Ox 98 97 95 95 O2 Delivery Simple Mask Simple Mask High Flow Nasal Cannula High Flow Nasal Cannula O2 Flow Rate 10 10.0 6 6.0 09/27/19 09/27/19 09/27/19 09/27/19 19:18 19:18 19:30 19:45 Temp 98.5 98.1 98.1 98.5 98.1 98.1 Pulse 75 85 73 Resp 16 18 18 B/P (MAP) 132/73 111/83 (92) 142/74 (96) Pulse Ox 96 96 96 O2 Delivery High Flow Nasal Cannula Nasal Cannula Nasal Cannula Nasal Cannula O2 Flow Rate 4 4 2.0 2.0 09/27/19 09/27/19 09/27/19 09/27/19 20:00 20:00 20:15 20:30 Temp 98.1 98.1 98.1 98.1 98.1 98.1 Pulse 79 81 83 Resp 18 18 18 B/P (MAP) 156/78 (104) 140/74 (96) 152/80 (104) Pulse Ox 96 96 98 O2 Delivery Nasal Cannula Nasal Cannula Nasal Cannula Nasal Cannula O2 Flow Rate 2.0 3.0 2.0 2.0 09/27/19 09/27/19 09/27/19 09/27/19 21:00 21:30 22:00 22:26 Temp 98.2 98.2 98.4 98.2 98.2 98.4 Pulse 84 81 82 Resp 18 18 18 20 B/P (MAP) 137/76 (96) 139/81 (100) 141/79 (99) Pulse Ox 98 97 97 O2 Delivery Nasal Cannula Nasal Cannula Nasal Cannula Nasal Cannula O2 Flow Rate 2.0 2.0 2.0 3.0 09/27/19 09/27/19 09/28/19 09/28/19 23:00 23:26 03:00 04:24 Temp 98.5 98.3 98.5 98.3 Pulse 84 81 Resp 18 18 B/P (MAP) 119/67 (84) 130/62 (84) Pulse Ox 96 97 O2 Delivery Nasal Cannula Nasal Cannula Nasal Cannula Nasal Cannula O2 Flow Rate 2.0 3.0 2.0 09/28/19 09/28/19 09/28/19/12/20 05:24 07:00 07:47 11:00 Temp 97.8 98.5 97.8 98.5 Pulse 82 82 Resp 16 16 B/P (MAP) 133/71 (91) 125/64 (84) Pulse Ox 95 93 O2 Delivery Room Air Room Air Nasal Cannula Room Air O2 Flow Rate 2.0 09/28/19 11:10 Pulse Ox 95 O2 Delivery Room Air Intake and Output 09/27/19 09/27/19 09/28/19 15:00 23:00 07:00 Intake Total 1230 ml 400 ml Output Total 110 ml 800 ml Balance 1120 ml -400 ml CINDY BRICENO MD Sep 28, 2019 12:09
--- NOTE | 2019-09-28 13:07 | NUR ---
SW following. Discussed with RN, pt from home with , pt on a regular diet, non weight bearing, PT/OT ordered. SW will continue to follow.
[2019-09-28 13:15] LABS: PROTHROMBIN TIME PATIENT 14.1 SEC (11.7-14.0)
[2019-09-28 15:00] VITALS: BP 115/45
[2019-09-28] MEDS ORDERED: WARFARIN 7.5 MG TABLET. PO ONE (16:00)
[2019-09-28 19:57] VITALS: BP 155/59
[2019-09-28 23:04] VITALS: BP 141/62
[2019-09-29 03:18] VITALS: BP 142/76
[2019-09-29 04:25] LABS: PROTHROMBIN TIME PATIENT 13.7 SEC (11.7-14.0)
[2019-09-29 07:00] VITALS: BP 141/76
[2019-09-29] MEDS ORDERED: NICO2GUM42 BC (08:38)
[2019-09-29] MEDS ORDERED: WARF-78 PO (08:38)
[2019-09-29] MEDS ORDERED: DOCU-109 PO (08:38)
[2019-09-29] MEDS ORDERED: OXYC1TAB15 PO (08:38)
--- NOTE | 2019-09-29 08:43 | SNU/HH DC ---
DISCHARGE ORDERS DISCHARGE INFORMATION: DISCHARGE DATE: Sep 29, 2019 FINAL DIAGNOSIS Problems Medical Problems: (1) Fracture, femur, distal Status: Acute (2) Knee pain Status: Acute CONDITION ON DISCHARGE: Stable [facility]: SNF STAY <30 DAYS: Yes POST DISCHARGE ORDERS: ACTIVITY ORDERS: Other, see below WEIGHT BEARING STATUS: Non weight bearing DIET AFTER DISCHARGE: Regular OTHER ORDERS: strict NWB RLE FOLLOW-UP: PHYSICIAN FOLLOW-UP: Dr. Jones TREATMENT/EQUIPMENT ORDERS: ADAPTIVE EQUIPMENT NEEDED: Commode, Front wheeled walker Physical Therapy For: Evalulation/Treatment Occupational Therapy For: Evaluation/Treatment DISCHARGE MEDICATIONS: Home Meds Active Scripts Nicotine Polacrilex (NICOTINE GUM) 2 Mg Gum, 1 EACH BC PRN Q1HR PRN for SMOKING CESSATION, #20 EACH Prov:CINDY BRICENO MD 09/29/19 Warfarin Sodium (COUMADIN) 5 Mg Tablet, 5 MG PO DAILY for after leg surgery, #30 TAB Prov:CINDY BRICENO MD 09/29/19 Docusate Sodium (COLACE) 100 Mg Capsule, 100 MG PO BID for prevent constipation, #60 EACH Prov:CINDY BRICENO MD 09/29/19 Oxycodone/Apap 5-325 (PERCOCET 5-325 MG TABLET ) 1 Each Tablet, 1 TAB PO PRN Q4HRS PRN for SEVERE PAIN 7-10, #30 TAB Prov:CINDY BRICENO MD 09/29/19 CINDY BRICENO MD Sep 29, 2019 08:43
[2019-09-29 11:00] VITALS: BP 148/78
--- NOTE | 2019-09-29 11:34 | NUR ---
Pharmacy Warfarin Dosing Note S: Pharmacy consulted to assist with anticoagulation therapy started 09/28/19 O: TAY PÉREZ is a 63 year old F with ORIF LABS: Last INR: 1.1 Last HGB: 13.1 Last HCT: 39.5 Last PLT: 276 Last dose of 7.5 mg given on 09/28/19 at 1608 Vitamin K given: N A:INR of 1.1 is below desired range. Target range for this patient is: 1.6 - 2.5 P: Warfarin dose: 5 mg Today at 1600 Bridge Therapy: None Next INR due tomorrow Pharmacy anticoagulation service will continue to follow. Della Solis RPH, 09/29/19 [id number]
--- NOTE | 2019-09-29 12:05 | NUR ---
RODNEY following. Discussed with RN, pt wanting to go to [facility]. [facility] as she lives in [place]. RODNEY spoke with [facility], Rony, to determine if they are taking pt's. Rony advised they are taking pt's and are awaiting the referral. RODNEY faxed the referral. Awaiting acceptance decision. Pt ready for discharge today. Addendum: 09/29/19 at 1451 by YESSENIA STEVENS RODNEY faxed referral 3 times throughout the day and got "error occurred" every time. RODNEY spoke with Latasha from [facility] multiple times regarding this. Latasha came to [facility] to collect the referral at 1450 - RODNEY requested an acceptance decision as soon as possible due to the hold up with faxing and advised pt is ready for discharge. RN notified. Addendum: 09/29/19 at 1600 by YESSENIA STEVENS [facility] accepted pt. Transportation arranged for 1629 today. RN and family notified.
[2019-09-29 15:00] VITALS: BP 146/80
--- NOTE | 2019-09-29 15:28 | RAD ---
PORTABLE CHEST 1V History: Fever Comparison: September 29, 2019 Findings: No consolidation or pleural effusion. Normal heart size. No pneumothorax. Impression: 1. No acute cardiopulmonary process. Electronically signed by: Dread Flores DO (09/29/2019 3:25 PM) [id number]
== END 2019-09-29 16:39 | DRG 482 ==
LOC: ER 21:33 → 4 NORTH 22:29
PROVIDERS: ADMIT Internal Medicine; ATTEND Internal Medicine
PROC: 0QSB06Z Reposition Right Lower Femur with Intramedullary Internal Fixation Device, Open Approach (ICD-10-PCS; principal; 2019-09-27 16:00)
DX: S72.411A Displaced unspecified condyle fracture of lower end of right femur, initial encounter for closed fracture (principal); F17.210 Nicotine dependence, cigarettes, uncomplicated; Z96.659 Presence of unspecified artificial knee joint; W07.XXXA Fall from chair, initial encounter; Y93.89 Activity, other specified; Y92.89 Other specified places as the place of occurrence of the external cause; Y99.8 Other external cause status
CPT/HCPCS: 36415; 71045; 73560; 76000; 80053; 84484; 85025; 85610; 93005; 96374; 96375; A7015; C1713; J0171; J0696; J1100; J2001; J2270; J2405; J2704; J3010; J7120; 97110; 97116; 97530; 99285-25; G0378